=== PATIENT | female | born 1950 | race African-American/Black ===

== ENCOUNTER → 2017-11-10 | Outpatient (CLI) | payer OTHER ==
[~2017-11-10] MED LIST: ACCUNEB SO1.25 MG/1 INH; AMITIZA 24 MCG24 MC1 PO; CARAFATE 1 GM TA1 G1 PO; FLEXERIL PO; GAVISCON ES CH1 EAC1 PO; GLUCOPHAGE500 MG PO; KLOR-CON 1010 MEQ PO; LASIX 40 MG TAB40 M2 PO; LINZESS290 MCG PO; LYRICA 50 MG50 MG PO; MAXZIDE 75-501 EACH PO; OMEPRAZOLE40 MG PO; SINGULAIR 10 MG10 M1 PO; STOOL SOFTENER100 MG PO; TESSALON PERLE100 MG PO; VENTOLIN HFA 1818 GM INH
== END | disposition home or self-care (01) ==
LOC: SPEC 09:24
DX: Z45.2 Encounter for adjustment and management of vascular access device (principal); I10 Essential (primary) hypertension; E11.9 Type 2 diabetes mellitus without complications; J45.909 Unspecified asthma, uncomplicated; K21.9 Gastro-esophageal reflux disease without esophagitis; M79.7 Fibromyalgia; F17.210 Nicotine dependence, cigarettes, uncomplicated; E66.01 Morbid (severe) obesity due to excess calories; Z88.0 Allergy status to penicillin; Z79.82 Long term (current) use of aspirin; Z79.4 Long term (current) use of insulin; Z79.891 Long term (current) use of opiate analgesic; Z79.899 Other long term (current) drug therapy; Z68.33 Body mass index [BMI] 33.0-33.9, adult; Z88.8 Allergy status to other drugs, medicaments and biological substances; Z98.84 Bariatric surgery status; Z90.49 Acquired absence of other specified parts of digestive tract; Z98.890 Other specified postprocedural states; Z90.710 Acquired absence of both cervix and uterus; Z87.19 Personal history of other diseases of the digestive system
CPT/HCPCS: 27000

== ENCOUNTER 2017-11-11 05:30 | Inpatient (IN) | payer OTHER ==
[~2017-11-11] VITALS: Ht 167.6 cm; Wt 99.6 kg
--- NOTE | ~2017-11-11 | EKG ---
[address] [place] [address] ELECTROCARDIOGRAM REPORT Name: FRANK HUA Room #: 205-P ADM IN M.R.#: [id number] Admission: 11/11/17 Attend Phys: Carl Ross MD, Discharge: Date of : 54 Report #: [id number] THIS REPORT FOR: //name// [facility] Test Date: 2017-11-13 Test Time: 07:59:05 Pat Name: FRANK HUA Department: Room: 406 P Gender: F Comptroller: JLAMBCOLLINS : 1950 Requested By: Levi Chao Order Number: [id number] MD: Jean-Pierre Gerber Measurements Intervals [place] Rate: 100 P: 58 MT: 144 QRS: 23 QRSD: 81 T: 30 QT: 349 QTc: 451 Interpretive Statements Sinus tachycardia Abnormal R-wave progression, early transition Nonspecific T abnormalities, anterior leads Compared to ECG 11/11/2017 07:44:29 No significant changes Electronically Signed On 11-15-2017 7:51:45 CDT by Jean-Pierre Gerber [email or web address] <ELECTRONICALLY SIGNED> By: Jean-Pierre Gerber MD, [facility] 11/15/17 [id number] [phone] Jean-Pierre Gerber MD, [facility] /EPI
--- NOTE | ~2017-11-11 | O ---
[facility] [place] [address] OPERATIVE REPORT Name: FRANK HUA Room #: 205-P ADM IN M.R.#: [id number] Admission: 11/11/17 Attend Phys: Carl Ross MD, Discharge: Date of : 54 Report #: [id number] THIS REPORT FOR: //name// CC: Palomo Ross DATE OF SERVICE: 11/11/2017 PREOPERATIVE DIAGNOSES: 1. Recurrent incisional ventral hernia. 2. Diabetes mellitus. 3. Gastroesophageal reflux disease. 4. Hypertension. 5. History of Ping-en-Y gastric bypass. 6. Morbid obesity with a BMI of 34.06. 7. Suspected intraabdominal adhesions. POSTOPERATIVE DIAGNOSES: 1. Multiple incarcerated recurrent incisional ventral hernias. 2. Diabetes mellitus. 3. Gastroesophageal reflux disease. 4. Hypertension. 5. History of Ping-en-Y gastric bypass. 6. Morbid obesity with a BMI of 34.06. 7. Suspected intraabdominal adhesions. 8. Dense and significant intra-abdominal adhesions. 9. Ischemic abdominal wall fascia. 10. Loss of abdominal domain. PROCEDURES PERFORMED: 1. Exploratory laparotomy. 2. Extensive lysis of adhesions lasting 66 minutes. 3. Debridement of ischemic and nonviable abdominal wall fascia and hernia sac. 4. Complex abdominal wall reconstruction with open repair of multiple incarcerated recurrent incisional ventral hernias using mesh. 5. Bilateral component separation of the transversus abdominis type (TAR). 6. Adjacent tissue transfer closure of the anterior abdominal wall, ultimately measuring 32 x 28 cm in dimension (896 square cm). 7. Placement of a topical wound VAC device (Prevena). 8. Modifier 22 procedure for extreme difficulty of procedure, necessitating a greater than 60-minute lysis of adhesions in this patient with dense intra-abdominal adhesions, who has undergone multiple attempts at surgical repair of her recurrent incisional ventral hernias. She did have evidence of loss of abdominal domain that required complex abdominal wall closure techniques with bilateral transversus abdominis component separation and push total operative time to nearly 3 hours as opposed to the usual 30-45 minute open [address] [address] OPERATIVE REPORT Name: FRANK HUA Room #: 205-P [facility] IN ..#: [id number] Admission: 11/11/17 Attend Phys: Carl Ross MD, Discharge: Date of : 54 Report #: [id number] ventral hernia repair with mesh. Significant complexity was also owed to the fact that she is morbidly obese with a BMI of nearly 35 and has a thick abdominal wall with marked intra-abdominal fatty tissue present. SURGEON: Carl Ross MD CHIP SILO TENDER: ANTHONY Zheng ANESTHESIA: General endotracheal anesthesia. ESTIMATED BLOOD LOSS: Minimal (less than 50 mL). COMPLICATIONS: None appreciated. SPECIMENS: Excised ischemic and nonviable abdominal wall fascial tissue plus hernia sac to Pathology. INDICATIONS: The patient is a 67-year-old morbidly obese -[place] female who has a history of an open Ping-en-Y gastric bypass several years ago followed by a TAHBSO as well as numerous attempts at repair of recurrent incisional ventral hernias. Unfortunately, the patient has obvious evidence of yet another recurrence and after obtaining medical clearance and a thorough workup, indication was for operative intervention as delineated above. DESCRIPTION OF PROCEDURE: After explaining the risks, benefits and alternatives of the procedure with the patient in detail in the preoperative holding area and obtaining written consent, the patient was brought to the operating room and placed supine on the operating room table. After conducting a thorough timeout procedure verifying correct patient and procedure, the patient was given general endotracheal anesthesia. Once adequate anesthesia was obtained, her SCDs were hooked up to pneumatic compression device and she was given a preoperative dose of antibiotics in line with the SCIP protocol. The patient's abdomen was prepped and draped in standard surgical sterile fashion. A #10 bladed scalpel was used to create a longitudinal midline wound from the subxiphoid location to the suprapubic location following her prior incision site, carried to the left of the umbilicus. Electrocautery was used to carry this down through skin and subcutaneous tissues to ensure hemostasis and we immediately encountered several incarcerated recurrent incisional hernias containing omentum. A finger was placed through the fascial defect and the entire fascial incision was opened in a controlled fashion so as to prevent injury to any underlying structures from thermal spread from Bovie electrocautery. Stacy clamps were then placed on the fascial edges and were elevated and I proceeded to take down all adhesions of bowel and omentum from the posterior aspect of the anterior abdominal wall throughout. This took considerable time and in fact took 66 minutes in total to free the entirety of the abdominal wall from the intraabdominal structures. Attempts at evaluating loops of small bowel showed markedly dense interloop [facility] [address] [place] [address] OPERATIVE REPORT Name: FRANK HUA Room #: 205-P ADM IN Lizeth.#: [id number] Admission: 11/11/17 Attend Phys: Carl Ross MD, Discharge: Date of : 54 Report #: [id number] adhesions with no obstructive findings whatsoever as the bowel was normal in caliber throughout. As there were no obstructive findings, attention was turned back to the abdominal wall for definitive repair of her hernias. Stacy clamps were placed on the fascial edges in attempts at medializing them, were unsuccessful due to the 5 cm defect size at numerous locations throughout her longitudinal midline wound. The fascial edges were then elevated between Stacy clamps and electrocautery was used to score the posterior aspect of the abdominal wall approximately 0.5 cm lateral to the midline fascial wound. I was able to easily enter into the transversus space and carried this dissection as far laterally on both sides as possible completing the bilateral component separation of the transversus abdominis muscle layer. Attempts at medializing this posterior layer at this juncture now showed that it could be brought together easily without tension down the midline. This is due to the component separation aspect. I now closed the posterior layer using #1 PDS suture in standard running fashion. I then selected a piece of Prolene mesh that measured 30 x 30 cm in dimension. The mesh was tailored to fit the abdominal wall in the transversus space ensuring that the mesh did not touch skin. Once this was placed and there was no evidence of rippling as it was trimmed to size, I utilized 30 mL of Tisseel to anchor it into place as well as several sutures of 0 PDS through the mesh into the fascia. I then placed a 19-[place] round Anthony-Wylie drain in the space contiguous with the mesh and this was anchored to the skin using 2-0 nylon in standard fashion. I then closed the anterior fascial layer after clearing it off for approximately 15 cm circumferentially on either side to ensure good fascia was brought together down the midline and this was closed using loop #1 PDS suture in standard fashion. Now that the abdominal wall was closed, there were areas of the midline subcutaneous tissue and skin that were very thin due to the longstanding nature of the hernia formation and in order to obtain vascularized subcutaneous tissue overlying the fascial closure, this did require adjacent tissue transfer closure of the anterior abdominal wall. Now, the large skin flaps that had been created were elevated and relaxing incisions were made internally using electrocautery, which allowed medial rotation of vascularized pedicles of subcutaneous tissue. This was done on both sides and entailed adjacent tissue transfer closure of the anterior abdominal wall, which ultimately measured 32 x 28 cm in dimension. The rotated subcutaneous flaps were then anchored down the midline using 3-0 PDS in standard interrupted inverted fashion. Skin was then closed using the Insorb absorbable subcutaneous stapler and a topical wound VAC (Prevena) device was placed over top of the wound. At the end of the lengthy procedure, all instrument, needle and sponge counts were correct. The patient tolerated the procedure without incident, was awakened in the operating room and transitioned to the recovery room in stable condition with no apparent complications. <ELECTRONICALLY SIGNED> By: Carl Ross MD, FACS 11/15/17 [id number] Carl Ross MD, FACS /nt
--- NOTE | ~2017-11-11 | EKG ---
[address] [address] ELECTROCARDIOGRAM REPORT Name: FRANK HUA Room #: 150-6 ADM IN M.R.#: [id number] Admission: 11/11/17 Attend Phys: Carl Ross MD, Discharge: Date of : 54 Report #: [id number] THIS REPORT FOR: //name// [facility] Test Date: 2017-11-11 Test Time: 07:44:29 Pat Name: FRANK HUA Department: Room: 150 6 Gender: F Employment Legal Assistant: KATHARINE : 1950 Requested By: Carl Ross Order Number: [id number] MD: Gaudencio Park Measurements Intervals [place] Rate: 106 P: 42 LA: 140 QRS: 8 QRSD: 86 T: 19 QT: 365 QTc: 485 Interpretive Statements Sinus tachycardia Abnormal R-wave progression, early transition Nonspecific T abnormalities, anterior leads No previous ECG available for comparison Electronically Signed On 11-11-2017 8:24:35 CDT by Gaudencio Park [email or web address] <ELECTRONICALLY SIGNED> By: Gaudencio Park MD 11/11/17 0824 MD PATRICIA Landry
[2017-11-11 07:27] LABS: HEMATOCRIT 34.8 % (37.0-47.0); HEMOGLOBIN 11.4 gm/dL (12.0-15.0)
[2017-11-11 07:35] LABS: CREATININE 1.1 mg/dL (0.6-1.0)
[2017-11-11 07:36] LABS: POTASSIUM 2.9 mmol/L (3.5-5.1)
[2017-11-11 09:07] VITALS: BP 132/74
[2017-11-11 21:04] VITALS: BP 99/69
[2017-11-12 00:24] VITALS: BP 106/68
[2017-11-12 01:09] LABS: GLYCOHEMOGLOBIN (HGB A1C) 6.3 % (4.8-5.6)
[2017-11-12 02:35] LABS: HEMATOCRIT 27.4 % (37.0-47.0); MCH 26.5 pg (26.0-34.0); MCHC 32.4 g/dL (28.0-37.0); MCV 81.7 fL (80.0-100.0); RBC 3.35 mil/uL (4.20-5.00); RDW 16.8 % (10.5-14.5); WBC 13.5 thou/uL (4.0-11.0)
[2017-11-12 02:36] LABS: HEMOGLOBIN 8.9 gm/dL (12.0-15.0)
[2017-11-12 02:38] LABS: CALCIUM 7.9 mg/dL (8.5-10.1); CREATININE 0.9 mg/dL (0.6-1.0); POTASSIUM 3.7 mmol/L (3.5-5.1)
[2017-11-12 05:14] VITALS: BP 98/65
[2017-11-12 08:00] VITALS: BP 103/61
[2017-11-12 14:25] VITALS: BP 113/72
[2017-11-12 16:00] VITALS: BP 108/64
[2017-11-12 20:00] VITALS: BP 119/62
[2017-11-13 04:00] VITALS: BP 104/66
[2017-11-13 05:57] LABS: ABSOLUTE NEUTROPHILS 8.3 thou/uL (1.4-8.2); BASOPHILS 0.3 % (0.0-2.0); EOSINOPHILS 0.5 % (0.0-3.0); HEMATOCRIT 21.7 % (37.0-47.0); HEMOGLOBIN 7.3 gm/dL (12.0-15.0); LYMPHOCYTES 13.4 % (24.0-44.0); MCHC 33.5 g/dL (28.0-37.0); MCV 80.6 fL (80.0-100.0); MONOCYTES 11.2 % (1.0-8.0); PLATELET COUNT 262 thou/uL (150-400); POLYS 74.6 % (36.0-66.0); RBC 2.69 mil/uL (4.20-5.00); RDW 16.4 % (10.5-14.5); WBC 11.1 thou/uL (4.0-11.0)
[2017-11-13 06:07] LABS: CALCIUM 7.9 mg/dL (8.5-10.1); POTASSIUM 3.5 mmol/L (3.5-5.1)
[2017-11-13 07:37] VITALS: BP 91/58
[2017-11-13 14:55] VITALS: BP 113/56
[2017-11-13 15:24] VITALS: BP 138/67; BP 140/73
[2017-11-13 19:30] VITALS: BP 125/68
[2017-11-13 19:56] LABS: HEMATOCRIT 21.4 % (37.0-47.0); HEMOGLOBIN 7.2 gm/dL (12.0-15.0)
[2017-11-14 00:05] VITALS: BP 131/68
[2017-11-14 01:12] LABS: BASOPHILS 0.4 % (0.0-2.0)
[2017-11-14 01:14] LABS: ABSOLUTE NEUTROPHILS 6.8 thou/uL (1.4-8.2); EOSINOPHILS 0.4 % (0.0-3.0); HEMOGLOBIN 6.5 gm/dL (12.0-15.0); LYMPHOCYTES 14.1 % (24.0-44.0); MCH 28.3 pg (26.0-34.0); MCHC 34.2 g/dL (28.0-37.0); MCV 82.8 fL (80.0-100.0); MONOCYTES 9.2 % (1.0-8.0); PLATELET COUNT 190 thou/uL (150-400); POLYS 75.9 % (36.0-66.0); RBC 2.28 mil/uL (4.20-5.00); RDW 16.7 % (10.5-14.5); WBC 8.9 thou/uL (4.0-11.0)
[2017-11-14 01:20] LABS: HEMATOCRIT 18.9 % (37.0-47.0)
[2017-11-14 01:21] LABS: CALCIUM 7.4 mg/dL (8.5-10.1); CREATININE 0.6 mg/dL (0.6-1.0); POTASSIUM 3.4 mmol/L (3.5-5.1)
[2017-11-14 01:38] LABS: HEMOGLOBIN 7.1 gm/dL (12.0-15.0)
[2017-11-14 01:41] LABS: HEMATOCRIT 21.1 % (37.0-47.0)
[2017-11-14 03:40] VITALS: BP 116/71
[2017-11-14 07:30] VITALS: BP 111/71
[2017-11-14 11:50] VITALS: BP 136/89
[2017-11-14 16:10] VITALS: BP 123/67
[2017-11-14 19:48] VITALS: BP 115/54
[2017-11-15 02:12] LABS: HEMOGLOBIN 6.5 gm/dL (12.0-15.0); MCH 28.5 pg (26.0-34.0); MCHC 34.5 g/dL (28.0-37.0); MCV 82.6 fL (80.0-100.0); RBC 2.27 mil/uL (4.20-5.00); RDW 17.1 % (10.5-14.5); WBC 8.2 thou/uL (4.0-11.0)
[2017-11-15 02:18] LABS: CALCIUM 7.7 mg/dL (8.5-10.1); CREATININE 0.6 mg/dL (0.6-1.0); POTASSIUM 3.2 mmol/L (3.5-5.1)
[2017-11-15 02:19] LABS: HEMATOCRIT 18.8 % (37.0-47.0)
[2017-11-15 03:43] VITALS: BP 15/70
[2017-11-15 04:06] VITALS: BP 110/60
[2017-11-15 07:23] VITALS: BP 124/61
[2017-11-15 09:02] LABS: HEMATOCRIT 23.6 % (37.0-47.0); HEMOGLOBIN 8.2 gm/dL (12.0-15.0)
[2017-11-15 11:29] VITALS: BP 126/64
[2017-11-15 20:33] VITALS: BP 106/68
[2017-11-15 23:23] VITALS: BP 103/61
[2017-11-16 04:44] VITALS: BP 104/72
[2017-11-16 07:01] LABS: ABSOLUTE NEUTROPHILS 5.1 thou/uL (1.4-8.2); BASOPHILS 0.3 % (0.0-2.0); EOSINOPHILS 1.1 % (0.0-3.0); HEMATOCRIT 23.2 % (37.0-47.0); HEMOGLOBIN 7.8 gm/dL (12.0-15.0); LYMPHOCYTES 18.8 % (24.0-44.0); MCH 28.4 pg (26.0-34.0); MCHC 33.6 g/dL (28.0-37.0); MCV 84.4 fL (80.0-100.0); MONOCYTES 8.8 % (1.0-8.0); PLATELET COUNT 252 thou/uL (150-400); RBC 2.75 mil/uL (4.20-5.00); RDW 16.8 % (10.5-14.5); WBC 7.2 thou/uL (4.0-11.0)
[2017-11-16 07:09] LABS: CALCIUM 7.7 mg/dL (8.5-10.1); CREATININE 0.7 mg/dL (0.6-1.0); POTASSIUM 3.7 mmol/L (3.5-5.1)
[2017-11-16 07:45] VITALS: BP 107/65
[2017-11-16 11:30] VITALS: BP 127/76
[2017-11-16 15:20] VITALS: BP 107/54
[2017-11-16 16:53] LABS: HEMATOCRIT 24.6 % (37.0-47.0); HEMOGLOBIN 8.4 gm/dL (12.0-15.0)
[2017-11-16 19:54] VITALS: BP 125/48
[2017-11-16 23:21] LABS: HEMATOCRIT 22.1 % (37.0-47.0); HEMOGLOBIN 7.5 gm/dL (12.0-15.0)
[2017-11-17 04:00] LABS: HEMATOCRIT 20.9 % (37.0-47.0)
[2017-11-17 04:37] VITALS: BP 128/77
[2017-11-17 07:42] VITALS: BP 102/57
[2017-11-17 11:45] VITALS: BP 123/64
[2017-11-17 12:37] LABS: HEMATOCRIT 25.2 % (37.0-47.0); HEMOGLOBIN 8.6 gm/dL (12.0-15.0)
[2017-11-17 15:07] VITALS: BP 130/76
[2017-11-17 19:43] VITALS: BP 126/76
[2017-11-17 19:48] LABS: HEMATOCRIT 25.4 % (37.0-47.0); HEMOGLOBIN 8.6 gm/dL (12.0-15.0)
[2017-11-18 00:43] LABS: HEMATOCRIT 24.3 % (37.0-47.0); HEMOGLOBIN 8.1 gm/dL (12.0-15.0)
[2017-11-18 04:30] VITALS: BP 109/64
[2017-11-18 10:08] LABS: HEMATOCRIT 27.6 % (37.0-47.0); HEMOGLOBIN 9.3 gm/dL (12.0-15.0)
[2017-11-18 10:34] VITALS: BP 119/60
[2017-11-18 15:16] VITALS: BP 129/68
[2017-11-18 19:00] LABS: HEMATOCRIT 25.2 % (37.0-47.0); HEMOGLOBIN 8.5 gm/dL (12.0-15.0)
[2017-11-18 19:14] LABS: PROTIME 9.8 Seconds (9.3-11.4)
[2017-11-18 19:32] VITALS: BP 122/72
[2017-11-19 04:20] VITALS: BP 118/66
[2017-11-19 07:27] VITALS: BP 108/67
[2017-11-19 11:23] VITALS: BP 133/71
[2017-11-19 15:54] VITALS: BP 124/77
[2017-11-19 19:26] VITALS: BP 112/63
[2017-11-20 04:17] VITALS: BP 119/66
[2017-11-20 05:37] LABS: HEMOGLOBIN 9.3 gm/dL (12.0-15.0); MCH 28.5 pg (26.0-34.0); MCHC 33.2 g/dL (28.0-37.0); MCV 85.9 fL (80.0-100.0); RBC 3.26 mil/uL (4.20-5.00); RDW 17.8 % (10.5-14.5); WBC 9.8 thou/uL (4.0-11.0)
[2017-11-20 08:08] VITALS: BP 138/67
[2017-11-20 10:53] LABS: HEMOGLOBIN 8.9 gm/dL (12.0-15.0)
[2017-11-20 12:27] VITALS: BP 106/65
[2017-11-20 17:21] VITALS: BP 113/60
[2017-11-20 19:32] VITALS: BP 121/63
[2017-11-20 22:14] LABS: CALCIUM 8.6 mg/dL (8.5-10.1); CREATININE 0.9 mg/dL (0.6-1.0); MAGNESIUM 1.9 mg/dL (1.8-2.4); POTASSIUM 3.8 mmol/L (3.5-5.1)
[2017-11-21 04:03] LABS: PROTIME 9.7 Seconds (9.3-11.4)
[2017-11-21 04:14] LABS: HEMATOCRIT 24.5 % (37.0-47.0); HEMOGLOBIN 8.2 gm/dL (12.0-15.0); MCH 28.4 pg (26.0-34.0); MCHC 33.6 g/dL (28.0-37.0); MCV 84.6 fL (80.0-100.0); RBC 2.9 mil/uL (4.20-5.00); RDW 17.5 % (10.5-14.5); WBC 6.9 thou/uL (4.0-11.0)
[2017-11-21 04:21] VITALS: BP 103/58
[2017-11-21 08:11] VITALS: BP 124/67
[2017-11-21 12:35] VITALS: BP 112/70
[2017-11-21 15:52] VITALS: BP 108/42
[2017-11-21 19:33] VITALS: BP 106/87
[2017-11-21 20:21] LABS: % SATURATION 4 % (20-39); IRON 16 ug/dL (50-170); TIBC 395 ug/dL (250-450)
[2017-11-22 04:13] VITALS: BP 120/68
[2017-11-22 06:31] LABS: HEMATOCRIT 26.2 % (37.0-47.0); HEMOGLOBIN 8.7 gm/dL (12.0-15.0); MCH 28.3 pg (26.0-34.0); MCHC 33.2 g/dL (28.0-37.0); MCV 85.2 fL (80.0-100.0); RBC 3.08 mil/uL (4.20-5.00); RDW 17.1 % (10.5-14.5)
[2017-11-22 06:53] LABS: APTT 67.5 Seconds (24.5-32.8); PROTIME 10.7 Seconds (9.3-11.4)
[2017-11-22 07:57] VITALS: BP 123/66
[2017-11-22 11:57] VITALS: BP 120/57
[2017-11-22 16:09] VITALS: BP 110/75
[2017-11-22 19:45] VITALS: BP 116/62
[2017-11-23 04:23] VITALS: BP 120/69
[2017-11-23 04:42] LABS: HEMATOCRIT 25.5 % (37.0-47.0); HEMOGLOBIN 8.4 gm/dL (12.0-15.0); MCH 28.1 pg (26.0-34.0); MCHC 33.2 g/dL (28.0-37.0); MCV 84.6 fL (80.0-100.0); RBC 3.01 mil/uL (4.20-5.00); RDW 17.2 % (10.5-14.5); WBC 9.4 thou/uL (4.0-11.0)
[2017-11-23 04:44] LABS: INR 1.4; PROTIME 14.5 Seconds (9.3-11.4)
[2017-11-23 08:53] VITALS: BP 114/57
[2017-11-23] MEDS ORDERED: ENOXAPARIN100 MG/11 SUBQ (09:09)
[2017-11-23] MEDS ORDERED: COUMADIN 5 MG TA5 M1 PO (09:09)
[2017-11-23] MEDS ORDERED: OXYCODONE HCL 55 MG PO (09:09)
[2017-11-23 10:35] VITALS: BP 114/57
[2017-11-23 12:31] VITALS: BP 125/62
== END 2017-11-23 12:35 | disposition home or self-care (01) | DRG 335 ==
LOC: 4N 05:30 → TBA 05:30 → PRE 12:46 → 4N 13:00 → PRE 16:45 → 2N 11-13 13:10 → ENTRNSPT 11-23 12:33 → 2N 11-23 12:35
PROVIDERS: Family Medicine; Hospitalist; Nurse Practitioner; Nurse Practitioner Acute Care; Nurse Practitioner Family; Surgery
DX: K43.0 Incisional hernia with obstruction, without gangrene (principal); I26.99 Other pulmonary embolism without acute cor pulmonale; K92.2 Gastrointestinal hemorrhage, unspecified; J98.11 Atelectasis; K21.9 Gastro-esophageal reflux disease without esophagitis; K66.0 Peritoneal adhesions (postprocedural) (postinfection); I10 Essential (primary) hypertension; J45.909 Unspecified asthma, uncomplicated; E66.01 Morbid (severe) obesity due to excess calories; E11.40 Type 2 diabetes mellitus with diabetic neuropathy, unspecified; M79.7 Fibromyalgia; F17.210 Nicotine dependence, cigarettes, uncomplicated; R07.9 Chest pain, unspecified; D64.9 Anemia, unspecified; K59.09 Other constipation; Z87.11 Personal history of peptic ulcer disease; Z68.35 Body mass index [BMI] 35.0-35.9, adult; Z90.49 Acquired absence of other specified parts of digestive tract; Z90.710 Acquired absence of both cervix and uterus; Z98.42 Cataract extraction status, left eye; Z98.41 Cataract extraction status, right eye; Z98.84 Bariatric surgery status
CPT/HCPCS: 10790; 10797; 50010; 50093; 50101; 50331; 50386; 50455; 50648; 50953; 51114; 51437; 56525; 56526; 56527; 56530; 57092; 62110; 62900; 65002; 65020; 65040; 70005